=== PATIENT | female | born 1955 | race Caucasian/White ===

== ENCOUNTER 2019-12-05 15:44 | Outpatient (CLI) | payer MEDICARE, SELFPAY ==
--- NOTE | ~2019-12-05 | XR_ITS ---
EXAMINATION: XR shunt series INDICATION: Presence of a cerebrospinal fluid drainage device TECHNIQUE: AP and lateral views of the skull, chest, abdomen are obtained COMPARISON: None available FINDINGS: A shunt catheter is followed from the right occipital region, crossing anteriorly in the ne ck, inferiorly in the right upper chest wall then in the midline of the lower chest, eventually coili ng with its tip in the pelvis. No catheter discontinuity is identified. There is stable cardiomegaly. Small pleural effusions are present. There are interstitial opacities, right greater than left. The bowel gas pattern is normal. There is severe cervical spondylosis at C5-6. IMPRESSION: 1. No evidence of shunt catheter discontinuity. 2. Cardiomegaly with possible mild pulmonary edema. Reviewed, dictated and finalized at location A.
--- NOTE | ~2019-12-05 | CT_ITS ---
EXAMINATION: CT brain wo con INDICATION: Presence of cerebral spinal fluid drainage device COMPARISON: 12/14/2010 TECHNIQUE: Standard unenhanced head CT. The dose-length product (DLP) was 605.33 mGy-cm. The mA was a djusted according to patient size. Iterative reconstruction technique was employed. FINDINGS: A right occipital shunt catheter tip is seen within a stable cystic space in the posterior fossa. There is persistent and unchanged mass effect on the cerebellum. There is no intracranial hemo rrhage, acute infarction, or abnormal mass lesion. The ventricles are normal. There is no midline emir ft The martínez-white matter differentiation is normal. The basal cisterns are patent. The orbits are nor mal. The paranasal sinuses, mastoids and calvarium are normal. IMPRESSION: 1. 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 2. No acute intracranial abnormality. Reviewed, dictated and finalized at location A. IMPRESSION: 1. Unchanged cystic space of the posterior fossa with an indwelling shunt aylin ter passing through the right occipital bone. 2. No acute intracranial abnormality.
== END 2019-12-05 15:45 | disposition home or self-care (01) ==
LOC: ANHIMG 15:51
PROVIDERS: PCP Family Medicine; Visit Provider Family Medicine
DX: R51 Headache (principal); I48.91 Unspecified atrial fibrillation; Z79.01 Long term (current) use of anticoagulants; Z98.2 Presence of cerebrospinal fluid drainage device
CPT/HCPCS: 70250; 70450; 71045; 74018